=== PATIENT | female | born 1935 | race Caucasian/White ===

== ENCOUNTER 2022-07-10 12:30 | Inpatient (IN) ==
--- NOTE | 2022-07-10 12:55 | Emergency Department Note ---
Impression & Plan Pulmonary edema, Abnormal EKG, Acute hyperkalemia, Elevated troponin I level, Acute UTI (urinary tract infection), Acute hyponatremia ED Provider Note NAME: GABRIEL GOMES AGE: 86 SEX: F : 1935 ARRIVES VIA: Ambulance INFORMANT: Patient, EMS, the patient's family. ED PROVIDER(S): Foreign Starr DO CHIEF COMPLAINT: Shortness of breath HPI: The patient is an 86-year-old female who presented to the emergency department for an evaluation of shortness of breath. She was recently discharged from [facility] for an NSTEMI. The patient went to see her family doctor in follow-up today. She was noted to have shortness of breath. She was sent to the emergency department for further evaluation. The patient's had weight gain and orthopnea. She is not noted to be hypoxic by the prehospital personnel. ROS: See above HPI for pertinent positives & negatives. A total of 10 systems re viewed and were otherwise negative. PAST MEDICAL HISTORY: See Below PAST SURGICAL HISTORY: See Below FAMILY HISTORY: See Below SOCIAL HISTORY: See Below HOME MEDICATIONS: See Below ALLERGIES: See Below VITALS: See Below PHYSICAL EXAMINATION: GENERAL: The patient is awake and alert. She appears comfortable. EYES: The conjunctivae are clear. The pupils are round and reactive. EARS, NOSE, MOUTH AND THROAT: The nose is without any evidence of any deformity. NECK: The neck is nontender and supple. RESPIRATORY: Diminished breath sounds are noted throughout. There were rales noted in all lung gamino. CARDIOVASCULAR: Irregular heart sounds were noted to auscultation. There is no definite murmur. GASTROINTESTINAL: The abdomen is soft. Abdomen is nontender. MUSCULOSKELETAL/EXTREMITIES: There is no evidence of gross deformity full range of motion is noted in the hips and shoulders. SKIN: Pedal edema was noted bilaterally. Skin was warm and dry. NEUROLOGIC: Patient is awake alert and oriented x3 MEDICAL DECISION MAKING: The patient is an 86-year-old female who presented to the emergency department for an evaluation of difficulty breathing. The patient was recently discharged from [facility]. Reportedly she had an NSTEMI at that time. The pat ient also reportedly had a follow-up echo that showed a decrease in her ejection fraction. She has been noted to have shortness of breath and weight gain. Upon arrival the patient's history and physical exam do appear to be consistent with pulmonary edema. She was treated with IV Lasix. Further she was treated with IV calcium dextrose and insulin for hyperkalemia. The patient was reevaluated multiple times. I discussed the patient's laboratory and radiographic studies with her family members. I also discussed her condition with the on-call [facility]. They have agreed to evaluate the patient in the emergency department for further management and disposition. Triage Nursing notes reviewed. Prior medical records reviewed Vital Signs: reviewed and remarkable for no significant abnormalities Differential diagnosis: Reactive airway disease, pneumonia, pneumothorax, COPD, CHF, infections, cardiac ischemia, pulmonary embolism, musculoskeletal, gastrointestinal, as well as other pathologies. ER treatment provided: See below Diagnostics interpreted by me: ECG: EKG was obtained in the emergency department. My interpretation is atrial fibrillation at 75 bpm. There is no PVCs. Right bundle-branch block pattern was noted. Nonspecific T wave abnormalities were noted in the anterior and inferior leads. There was ST segment abnormalities also appreciated. This was compared to a tracing from July 03, 2022. There were significant changes noted compared to the earlier tracing. Cardiac Monitoring: An order was placed for continuous cardiac monitoring. The monitor shows a rate of 83 bpm with atrial fibrillation. Laboratory studies: As stated above and show below. Imaging studies: See below. Radiographic imaging was reviewed by myself Consultation(s): I discussed this case with Liza who is on-call for the [facility] group. ED COURSE: Procedures: none Critical Care: I have personally spent greater than 45 minutes of critical care time in the direct management of this patient. This includes bedside care, interpretation of diagnostic studies, and testing, discussion with consultants, patient, and family members, and other required patient management activities. This 45 minutes is in excess of all separately billable procedures. Past Med/Surg History Medical History (Updated 07/10/22 @ 15:22 by Foreign Starr DO) CKD (chronic kidney disease), stage III DM type 2 (diabetes mellitus, type 2) Dyslipidemia History of CVA (cerebrovascular accident) Hypertension Hyponatremia Hypothyroidism Mitral valve regurgitation "severe per echo 10/07/17" Osteoarthritis SIADH (syndrome of inappropriate ADH production) Stroke Systolic CHF, chronic "echo 10/07/17 LVEF 40-45%" Surgical History History of cataract surgery History of hernia repair Hx of cholecystectomy Family History Other No significant family history Social History Smoking Status: Never smoker Hx Alcohol Use: No Hx Substance Use: No Preferred Language: Nepali Communication Ability: Effective Manager Of Network Required: No Beliefs That Will Affect Care: None Current Living Situation: Family Current Living Situation Comment: Lives with son Feels Safe at Home: Yes Assistive Devices: Glasses and Walker Allergies Allergies Allergy/AdvReac Type Severity Reaction Status Date / Time No Known Allergies Allergy Unverified 02/15/18 23:50 Home Meds Home Medications Medication Instructions Recorded Confirmed atorvastatin 20 mg tablet 20 mg PO DAILY 02/15/18 02/15/18 calcium carbonate 600 mg-vitamin 1 tab PO DAILY 02/15/18 02/15/18 D3 20 mcg (800 unit) chewable tablet (Caltrate 600 plus D) clopidogrel 75 mg tablet 75 mg PO DAILY 02/15/18 02/15/18 conjugated estrogens 0.625 mg/gram 1 applic vaginal 2XWK 02/15/18 02/15/18 vaginal cream furosemide 40 mg tablet 20 mg PO HS 02/15/18 02/15/18 levothyroxine 88 mcg tablet 88 mcg PO DAILY 02/15/18 02/15/18 lutein 10 mg tablet 6 mg PO BID 02/15/18 02/15/18 metformin 1,000 mg tablet 1,000 mg PO BID 02/15/18 02/15/18 omega 9-cxn-vmb-fish oil 1,000 mg 2,000 mg PO DAILY 02/15/18 02/15/18 (120 mg-180 mg) capsule (Fish Oil) sertraline 25 mg tablet 25 mg PO DAILY 02/15/18 02/15/18 sodium chloride 1 gram tablet 1,000 mg PO HS 02/15/18 02/15/18 vitamins A,C,G-yzdf-okocxw 2,148 1 tab PO DAILY 02/15/18 02/15/18 mcg-113 mg-45 mg-17.4 mg tablet (PreserVision AREDS) Previous Rx's Medication Instructions Recorded aspirin 81 mg chewable tablet 81 mg PO DAILY #30 tabs 02/20/18 Results & Data (ED) Vital Signs Vital Signs - 24 hr 07/10/22 12:31 07/10/22 12:31 07/10/22 12:31 Temperature 36.5 C Temperature Source Oral Pulse Rate 86 Pulse Rhythm Irregular Pulse Strength Normal Respiratory Rate 20 Respiratory Effort / Characteristics Non-Labored Spontaneous Accessory Muscle Use Respiratory Depth Normal Normal Respiratory Pattern Regular Regular Blood Pressure 107/72 Blood Pressure Mean 83 Blood Pressure Position Lying Pulse Oximetry 95 Oxygen Delivery Method Room Air Room Air Room Air Sepsis Recent Fever Within 48 Hours No Sepsis New/Unexplained Change in Mental Status N/A Sepsis Action Taken by Nursing No Action Required 07/10/22 12:31 07/10/22 12:48 Temperature Temperature Source Pulse Rate 83 Pulse Rhythm Pulse Strength Respiratory Rate Respiratory Effort / Characteristics Respiratory Depth Respiratory Pattern Blood Pressure Blood Pressure Mean Blood Pressure Position Pulse Oximetry Oxygen Delivery Method Room Air Sepsis Recent Fever Within 48 Hours Sepsis New/Unexplained Change in Mental Status Sepsis Action Taken by [facility] Medications Current Medication List: was personally reviewed by me Laboratory Data Attestation: I reviewed the patient's lab results. 07/10/22 12:45 07/10/22 12:45 Lab Results 07/10/22 07/10/22 07/10/22 Range/Units 12:45 12:45 12:45 WBC 13.50 H (4.8-10.8) K/ul RBC 4.43 (4.20-5.40) M/uL Hgb 13.3 (12.0-16.0) g/dl Hct 39.7 (37.0-47.0) % MCV 89.6 (80.0-100.0) fL MCH 30.0 (25.0-34.0) pg MCHC 33.5 (32.0-36.0) g/dL RDW Std Deviation 45.3 (36.4-46.3) fL RDW Coeff of Gonzalo 13.9 (11.5-14.5) % Plt Count 223 (130-400) K/uL MPV 10.3 (9.4-12.4) fL Immature Gran % (Auto) 0.5 % Neut % (Auto) 77.1 % Lymph % (Auto) 13.3 % Haakon % (Auto) 7.8 % Eos % (Auto) 1.0 % Baso % (Auto) 0.3 % Neut # (Auto) 10.40 H (1.40-6.50) K/uL Lymph # (Auto) 1.80 (1.2-3.4) K/uL Haakon # (Auto) 1.05 H (0.11-0.59) K/uL Eos # (Auto) 0.14 (0-0.50) K/uL Baso # (Auto) 0.04 (0-0.2) K/uL Immature Gran # (Auto) 0.07 (0.01-0.20) K/uL PT 13.9 H (9.0-12.0) Seconds INR 1.3 H (0.9-1.1) APTT 31.4 H (21.0-31.0) Seconds PTT Ratio 1.1 VBG pH (7.36-7.41) VBG pCO2 (38-50) mmHg VBG pO2 mmHg VBG HCO3 mmol/L VBG O2 Saturation % VBG Base Excess mEq/L Sodium 125 L (136-145) mmol/L Potassium 6.2 H* (3.5-5.1) mmol/L Chloride 96 L (98-107) mmol/L Carbon Dioxide 26 (21-32) mmol/L Anion Gap 3 (3-11) BUN 54 H (6-23) mg/dl Creatinine 1.68 H (0.6-1.2) mg/dl Est Cr Clr Drug Dosing 23.1 ml/min Est GFR ( Amer) 31.3 ml/min Est GFR (Non-Af Amer) 27.0 ml/min BUN/Creatinine Ratio 32.1 H (10-20) Glucose 73 (70-99(Fasting)) mg/dl Calcium 9.3 (8.5-10.1) mg/dl Magnesium 2.4 (1.7-2.4) mg/dl Total Bilirubin 0.8 (0.2-1.0) mg/dl AST 93 H (13-39) U/L ALT 108 H (7-52) U/L Alkaline Phosphatase 137 H (34-104) U/L Troponin I High Sens 86.4 H* (0-14) pg/ml B-Natriuretic Peptide (0-100) pg/ml Total Protein 6.3 (6.0-8.3) gm/dl Albumin 3.9 (3.4-5.0) gm/dl Globulin 2.4 L (2.5-4.0) gm/dl Albumin/Globulin Ratio 1.6 (0.9-2) Urine Color Urine Appearance (Clear) Urine pH (4.5-7.5) Ur Specific Everett (1.000-1.030) Urine Protein (Negative) Urine Glucose (UA) (Negative) Urine Ketones (Negative) Urine Blood (Negative) Urine Nitrite (Negative) Urine Bilirubin (Negative) Urine Urobilinogen (Negative) Ur Leukocyte Esterase (Negative) Urine WBC (Auto) (0-5) /hpf Urine RBC (Auto) (0-4) /hpf U Hyaline Cast (Auto) (0-5) /lpf U Epithel Cells (Auto) (0-5) /lpf Urine Bacteria (Auto) (Negative) SARS-CoV-2, RNA, NAAT (NEGATIVE) 07/10/22 07/10/22 07/10/22 Range/Units 12:45 12:55 13:04 WBC (4.8-10.8) K/ul RBC (4.20-5.40) M/uL Hgb (12.0-16.0) g/dl Hct (37.0-47.0) % MCV (80.0-100.0) fL MCH (25.0-34.0) pg MCHC (32.0-36.0) g/dL RDW Std Deviation (36.4-46.3) fL RDW Coeff of Gonzalo (11.5-14.5) % Plt Count (130-400) K/uL MPV (9.4-12.4) fL Immature Gran % (Auto) % Neut % (Auto) % Lymph % (Auto) % Haakon % (Auto) % Eos % (Auto) % Baso % (Auto) % Neut # (Auto) (1.40-6.50) K/uL Lymph # (Auto) (1.2-3.4) K/uL Haakon # (Auto) (0.11-0.59) K/uL Eos # (Auto) (0-0.50) K/uL Baso # (Auto) (0-0.2) K/uL Immature Gran # (Auto) (0.01-0.20) K/uL PT (9.0-12.0) Seconds INR (0.9-1.1) APTT (21.0-31.0) Seconds PTT Ratio VBG pH 7.28 L (7.36-7.41) VBG pCO2 50 (38-50) mmHg VBG pO2 32 mmHg VBG HCO3 24 mmol/L VBG O2 Saturation < 60.0 % VBG Base Excess -3.7 mEq/L Sodium (136-145) mmol/L Potassium (3.5-5.1) mmol/L Chloride (98-107) mmol/L Carbon Dioxide (21-32) mmol/L Anion Gap (3-11) BUN (6-23) mg/dl Creatinine (0.6-1.2) mg/dl Est Cr Clr Drug Dosing ml/min Est GFR ( Amer) ml/min Est GFR (Non-Af Amer) ml/min BUN/Creatinine Ratio (10-20) Glucose (70-99(Fasting)) mg/dl Calcium (8.5-10.1) mg/dl Magnesium (1.7-2.4) mg/dl Total Bilirubin (0.2-1.0) mg/dl AST (13-39) U/L ALT (7-52) U/L Alkaline Phosphatase (34-104) U/L Troponin I High Sens (0-14) pg/ml B-Natriuretic Peptide 958 H (0-100) pg/ml Total Protein (6.0-8.3) gm/dl Albumin (3.4-5.0) gm/dl Globulin (2.5-4.0) gm/dl Albumin/Globulin Ratio (0.9-2) Urine Color Urine Appearance (Clear) Urine pH (4.5-7.5) Ur Specific Everett (1.000-1.030) Urine Protein (Negative) Urine Glucose (UA) (Negative) Urine Ketones (Negative) Urine Blood (Negative) Urine Nitrite (Negative) Urine Bilirubin (Negative) Urine Urobilinogen (Negative) Ur Leukocyte Esterase (Negative) Urine WBC (Auto) (0-5) /hpf Urine RBC (Auto) (0-4) /hpf U Hyaline Cast (Auto) (0-5) /lpf U Epithel Cells (Auto) (0-5) /lpf Urine Bacteria (Auto) (Negative) SARS-CoV-2, RNA, NAAT NEGATIVE (NEGATIVE) 07/10/22 Range/Units 13:34 WBC (4.8-10.8) K/ul RBC (4.20-5.40) M/uL Hgb (12.0-16.0) g/dl Hct (37.0-47.0) % MCV (80.0-100.0) fL MCH (25.0-34.0) pg MCHC (32.0-36.0) g/dL RDW Std Deviation (36.4-46.3) fL RDW Coeff of Gonzalo (11.5-14.5) % Plt Count (130-400) K/uL MPV (9.4-12.4) fL Immature Gran % (Auto) % Neut % (Auto) % Lymph % (Auto) % Haakon % (Auto) % Eos % (Auto) % Baso % (Auto) % Neut # (Auto) (1.40-6.50) K/uL Lymph # (Auto) (1.2-3.4) K/uL Haakon # (Auto) (0.11-0.59) K/uL Eos # (Auto) (0-0.50) K/uL Baso # (Auto) (0-0.2) K/uL Immature Gran # (Auto) (0.01-0.20) K/uL PT (9.0-12.0) Seconds INR (0.9-1.1) APTT (21.0-31.0) Seconds PTT Ratio VBG pH (7.36-7.41) VBG pCO2 (38-50) mmHg VBG pO2 mmHg VBG HCO3 mmol/L VBG O2 Saturation % VBG Base Excess mEq/L Sodium (136-145) mmol/L Potassium (3.5-5.1) mmol/L Chloride (98-107) mmol/L Carbon Dioxide (21-32) mmol/L Anion Gap (3-11) BUN (6-23) mg/dl Creatinine (0.6-1.2) mg/dl Est Cr Clr Drug Dosing ml/min Est GFR ( Amer) ml/min Est GFR (Non-Af Amer) ml/min BUN/Creatinine Ratio (10-20) Glucose (70-99(Fasting)) mg/dl Calcium (8.5-10.1) mg/dl Magnesium (1.7-2.4) mg/dl Total Bilirubin (0.2-1.0) mg/dl AST (13-39) U/L ALT (7-52) U/L Alkaline Phosphatase (34-104) U/L Troponin I High Sens (0-14) pg/ml B-Natriuretic Peptide (0-100) pg/ml Total Protein (6.0-8.3) gm/dl Albumin (3.4-5.0) gm/dl Globulin (2.5-4.0) gm/dl Albumin/Globulin Ratio (0.9-2) Urine Color Dark Yellow Urine Appearance Cloudy A (Clear) Urine pH 5.0 (4.5-7.5) Ur Specific Everett 1.019 (1.000-1.030) Urine Protein 2+ H (Negative) Urine Glucose (UA) Negative (Negative) Urine Ketones Negative (Negative) Urine Blood Negative (Negative) Urine Nitrite Negative (Negative) Urine Bilirubin Negative (Negative) Urine Urobilinogen Negative (Negative) Ur Leukocyte Esterase 2+ H (Negative) Urine WBC (Auto) >30 H (0-5) /hpf Urine RBC (Auto) 0-4 (0-4) /hpf U Hyaline Cast (Auto) 1-5 (0-5) /lpf U Epithel Cells (Auto) >30 H (0-5) /lpf Urine Bacteria (Auto) 1+ H (Negative) SARS-CoV-2, RNA, NAAT (NEGATIVE) Administered Medications Discontinued Medications Dextrose (Dextrose 50% 50 Ml Syringe) 50 ml IV NOW STA Stop: 07/10/22 13:53 Last Admin: 07/10/22 14:50 Dose: 50 ml Documented By: AP Furosemide (Furosemide 40 Mg/4 Ml Vial) 40 mg IV ONE ONE Stop: 07/10/22 13:53 Last Admin: 07/10/22 14:51 Dose: 40 mg Documented By: AP Calcium Chloride 1,000 mg/ (Dextrose) 60 mls @ 240 mls/hr IV NOW STA Stop: 07/10/22 14:06 Last Admin: 07/10/22 14:50 Dose: 240 mls/hr Documented By: AP Insulin Human Regular (Novolin-R Insulin Per Unit Charge) 10 units IV NOW STA Stop: 07/10/22 13:53 Last Admin: 07/10/22 14:47 Dose: 10 units Documented By: AP Co-signed By: AY Imaging Data Radiologist's Impression: Chest X-Ray 07/10/22 12:31 XR chest 1V portable HISTORY: Cough. Dyspnea COMPARISON: Chest 02/15/2018. FINDINGS: No pneumothorax. The cardiac silhouette is enlarged. This has progressed. There is perihilar interstitial/vascular thickening suggestive of mild pulmonary edema. Suspect trace bilateral pleural effusions. There are right medial lung base densities noted which are new from the prior study. IMPRESSION: 1. Progressive cardiomegaly with mild interstitial pulmonary edema and trace bilateral pleural effusions. 2. Right medial lung base densities are new from the prior study may represent atelectasis or a developing pneumonia. ACT 112: Negative or not required by law. Electronically signed by: Gabriel Howard M.D. 07/10/2022 1:00 PM Discharge Plan Visit Data Chief Complaint: Shortness of Breath/Dyspnea Stated Complaint: SOB ED Provider: Foreign Starr Discharge Problem: Pulmonary edema, Abnormal EKG, Acute hyperkalemia, Elevated troponin I level, Acute UTI (urinary tract infection), Acute hyponatremia Patient Disposition: Being Evaluated by Hospitalist Forms Stand Alone Forms: [facility] Prescriptions Prescriptions: No Action furosemide 40 mg tablet 20 mg PO HS atorvastatin 20 mg tablet 20 mg PO DAILY clopidogrel 75 mg tablet 75 mg PO DAILY levothyroxine 88 mcg tablet 88 mcg PO DAILY metformin 1,000 mg tablet 1,000 mg PO BID sodium chloride 1 gram Tablet 1,000 mg PO HS conjugated estrogens 0.625 mg/gram cream 1 applic Vaginal 2XWK sertraline 25 mg Tablet 25 mg PO DAILY lutein 10 mg Tablet 6 mg PO BID omega 6-xlp-pbr-fish oil [Fish Oil] 1,000 mg (120 mg-180 mg) Capsule 2,000 mg PO DAILY vitamins A,C,G-vbln-acoxgb [PreserVision AREDS] [id number] Tablet 1 tab PO DAILY calcium carbonate-vitamin D3 [Caltrate 600 plus D] 600 mg (1,500 mg)-800 unit Tablet,Chewable 1 tab PO DAILY aspirin 81 mg tablet,chewable 81 mg PO DAILY Qty: 30 12RF Referrals Referrals: Madhav Camacho MD [Primary Care Provider] -
--- NOTE | 2022-07-10 13:01 | XRay Report ---
XR chest 1V portable HISTORY: Cough. Dyspnea COMPARISON: Chest 02/15/2018. FINDINGS: No pneumothorax. The cardiac silhouette is enlarged. This has progressed. There is perihila r interstitial/vascular thickening suggestive of mild pulmonary edema. Suspect trace bilateral pleura l effusions. There are right medial lung base densities noted which are new from the prior study. IMPRESSION: 1. Progressive cardiomegaly with mild interstitial pulmonary edema and trace bilateral pleural effusi ons. 2. Right medial lung base densities are new from the prior study may represent atelectasis or a devel oping pneumonia. ACT 112: Negative or not required by law. Electronically signed by: Gabriel Howard M.D. 07/10/2022 1:00 PM
[2022-07-10 13:08] LABS: Base Excess VBG -3.7 mEq/L; HCO3 VBG 24 mmol/L; Oxygen Saturation VBG < 60.0 %; PCO2 VBG 50 mmHg (38-50); PO2 VBG 32 mmHg; pH VBG 7.28 (7.36-7.41)
[2022-07-10 13:14] LABS: Basophils # (auto) 0.04 K/uL (0-0.2); Basophils % (auto) 0.3 %; Eosinophils # (auto) 0.14 K/uL (0-0.50); Hematocrit (blood only) 39.7 % (37.0-47.0); Hemoglobin 13.3 g/dl (12.0-16.0); Immature Granulocytes # (auto) 0.07 K/uL (0.01-0.20); Immature Granulocytes % (auto) 0.5 %; Lymphocytes % (auto) 13.3 %; Mean Corpuscular Hgb Conc 33.5 g/dL (32.0-36.0); Mean Corpuscular Volume 89.6 fL (80.0-100.0); Mean Platelet Volume 10.3 fL (9.4-12.4); Monocytes # (auto) 1.05 K/uL (0.11-0.59); Monocytes % (auto) 7.8 %; Neutrophils % (auto) 77.1 %; Platelet Count 223 K/uL (130-400); RDW Coefficient of Variation 13.9 % (11.5-14.5); RDW Standard Deviation 45.3 fL (36.4-46.3); Red Blood Count 4.43 M/uL (4.20-5.40)
[2022-07-10 13:41] LABS: Albumin Globulin Ratio 1.6 (0.9-2); Albumin Level 3.9 gm/dl (3.4-5.0); BUN Creatinine Ratio 32.1 (10-20); Bilirubin,Total 0.8 mg/dl (0.2-1.0); Calcium 9.3 mg/dl (8.5-10.1); Creatinine Clr Calc Pharmacy 23.1 ml/min; Est GFR (African American) 31.3 ml/min; Globulin 2.4 gm/dl (2.5-4.0); Magnesium 2.4 mg/dl (1.7-2.4); Potassium 6.2 mmol/L (3.5-5.1); Total Protein 6.3 gm/dl (6.0-8.3); Troponin I High Sensitivity 86.4 pg/ml (0-14)
[2022-07-10 13:42] LABS: INR 1.3 (0.9-1.1); Partial Thromboplastin Ratio 1.1; Partial Thromboplastin Time 31.4 Seconds (21.0-31.0); Prothrombin Time 13.9 Seconds (9.0-12.0)
[2022-07-10] MEDS ORDERED: FUROSEMIDE 40 MG/4 ML VIAL IV ONE (13:52)
[2022-07-10] MEDS ORDERED: CALCIUM CHLORIDE 10% 1,000 MG in DEXTROSE 5% 50 ML IV STA (13:52)
[2022-07-10] MEDS ORDERED: DEXTROSE 50% 50 ML SYRINGE IV STA (13:52)
[2022-07-10] MEDS ORDERED: NovoLIN-R INSULIN PER UNIT CHARGE IV STA (13:52)
[2022-07-10 14:21] LABS: Appearance Urine Cloudy (Clear); Bacteria Urine Automated 1+ (Negative); Bilirubin Urine Negative (Negative); Blood Urine Negative (Negative); Color Urine Dark Yellow; Epithelial Cell Urine Auto >30 /lpf (0-5); Glucose Urine UA Negative (Negative); Ketones Urine Negative (Negative); Leukocyte Esterase Urine 2+ (Negative); Nitrite Urine Negative (Negative); Protein Urine 2+ (Negative); RBC Urine Automated 0-4 /hpf (0-4); Specific Gravity Urine 1.019 (1.000-1.030); Urobilinogen Urine Negative (Negative); WBC Urine Automated >30 /hpf (0-5)
[2022-07-10] MEDS ORDERED: POLYETHYLENE (MIRALAX) 17 GM PACK PO PRN (14:41)
[2022-07-10] MEDS ORDERED: MAGNESIUM HYDROXIDE SUSP 30 ML UDC PO PRN (14:41)
[2022-07-10] MEDS ORDERED: ONDANSETRON INJ 2 MG/ML 2 ML VIAL IV PRN (14:41)
[2022-07-10] MEDS ORDERED: ALUMINUM/MAGNESIUM SUSP 30 ML UDC PO PRN (14:41)
[2022-07-10] MEDS ORDERED: ACETAMINOPHEN 325 MG TAB PO PRN (14:41)
--- NOTE | 2022-07-10 14:41 | History & Physical Report ---
Date of Service July 10, 2022 Assessment & Plan (1) Systolic CHF, chronic: (2) Pulmonary edema: (3) Abnormal EKG: (4) CKD (chronic kidney disease), stage III: (5) Hypertension: (6) Dyslipidemia: (7) DM type 2 (diabetes mellitus, type 2): (8) SIADH (syndrome of inappropriate ADH production): (9) History of CVA (cerebrovascular accident): (10) Hypothyroidism: (11) Goals of care, counseling/discussion: Plan Systolic CHF, chronic: Pulmonary edema: Abnormal EKG: CXR pulmonary edema; pleural effusions Lasix 40 mg IV administered in ED; reevaluate in a.m. for continuation of diuretics Patient typically takes Lasix 20 mg nightly; hold for now reevaluate in a.m. Concepcion insertion for accurate I/O Normally would recommend fluid restriction however transition to more hospice approach ECHO 10/08 LVEF 40 to 45%; echo 06/29/2022 EF 20%; mild to moderate MR and TR; defer repeat echo at this time pending cards eval Cardiology consult per request of family prior to transitioning home with hospice Pneumonia: CXR pulmonary edema; pleural effusions Started Rocephin IV Sputum culture pending Metabolic acidosis on VBG; CO2 50 but does not appear to need BiPAP at this time Leukocytosis WBC 13.5 CKD stage III: Baseline creatinine 1.4-1.9 over the past year; currently 1.68 K6.2 in ED Lasix, insulin and dextrose along with calcium IV administered; will trend with time to BMPs; K+ recheck to 4.8; trend in AM Confirmed patient would not want to pursue dialysis Nephrology consult per request of family prior to transitioning home with hospice Goals of Care; counseling: -Lengthy goals of care conversation held with patient and her family at the bedside. Patient lives with her son and daughter visits every day. There are 10 adult children involved in Mai's life. Mai was able to state that should her life be limited she would prefer to avoid future from hospitalizations and return home to focus on quality of life versus quantity. We discussed the difference between palliative medicine and hospice medicine. We discussed that patient would qualify for hospice with a diagnosis of congestive heart failure. Patient lives in a two-story home but has access to everything she needs on one story. Family in agreement to have specialist evaluation while here in the hospital but would avoid intervention at all cost. -Confirmed patient is DNR/DNI. Patient does have with a living will indicating she would not want to pursue hemodialysis, IV hydration or nutrition or ACLS intervention, including vasoactive medications should she decline. -If no improvement with patient's breathing from diuretics family is receptive to Roxanol PRN. Poor appetite reported lately. -Case management consult placed; no need for additional palliative medicine consultation placement as decision decided upon for returning home with hospice with all family in agreement upon discharge. Family lives in [facility]. Dyslipidemia: Takes atorvastatin; continue DM type II: Takes Tradjenta and was recently started on Lantus; will hold all oral diabetes medications while inpatient Placed on ACHS FSBS SSI SIADH: Takes sodium chloride tablets; continue History of CVA: Takes Eliquis; continue for now Discussed risk versus benefit with family. No recent falls to date Hypothyroidism: Takes levothyroxine; continue Recheck TSH Depression: Takes sertraline; continue Disposition: PCP: Dr. Camacho CODE STATUS: DNR/DNI VTE prophylaxis: Teds and SCDs for now Next of kin daughterBetzy: [phone] A total of 88 minutes was spent with greater than 50% of that time personally reviewing all current laboratory work and diagnostic imaging studies obtained in the ED. Additionally, I was able to review the patients past medication reconciliation and history with direct visualization in the patients chart. Included in the time above, a portion of that time was spent assessing the patient while discussing and collaborating with specialists, if necessary, and making medical decisions regarding orders to be placed. All of the aforementioned completed while collaborating with Dr. Lindquist for a full treatment plan. Please see his addendum for further details. History of Present Illness Chief Complaint: SOB Primary Care Provider: Madhav Camacho MD Mai is an 86-year-old female who presented to the [facility] via EMS from her PCP office with shortness of breath, weight gain. Potassium 6.2, sodium 125, creatinine 1.68 (baseline creatinine 1.4-1.9 over past year) Patient recently discharged from [facility] with diagnosis of NSTEMI in the setting of ischemic demand and reduced EF. Today chest x-ray shows pulmonary edema with pleural effusions. Patient is a poor historian and family at bedside to provide most of the history. In ED patient received Lasix 40 mg IV, insulin with dextrose, IV calcium. BNP 958, troponin 86.4. Echo in EMR 10/08 LVEF 40 to 45%. Echo 06/29/2022 EF 20%, mild to moderate MR, mild to moderate TR. Patient takes Plavix Additional past medical history includes history of CVA(on Plavix), SIADH, HLD, HTN, CKD 3, NIDDM 2, depression and hypothyroidism. Lengthy goals of care conversation held with patient and her family at the bedside. Patient lives with her son and daughter visits every day. There are 10 adult children involved in Mai's life. Mai was able to state that should her life be limited she would prefer to avoid future from hospitalizations and return home to focus on quality of life versus quantity. We discussed the difference between palliative medicine and hospice medicine. We discussed that patient would qualify for hospice with a diagnosis of congestive heart failure. Patient lives in a two-story home but has access to everything she needs on one story. Family in agreement to have specialist evaluation while here in the hospital but would avoid intervention at all cost. Confirmed patient is DNR/DNI. Patient does have with a living will indicating she would not want to pursue hemodialysis, IV hydration or nutrition or ACLS intervention, including vasoactive medications should she decline. Patient denies headache, dizziness, chest pain, visual or auditory changes, abdominal pain, recent falls or trauma. On examination at bedside, patient is using diaphragmatic muscles for breathing assistance, has a nonproductive cough, grade 2/6 murmur auscultated left sternal border. Patient will be admitted for further evaluation and management. Please see A/P for further details. Allergies Allergy/AdvReac Type Severity Reaction Status Date / Time No Known Allergies Allergy Unverified 02/15/18 23:50 Home Medications Medication Instructions Recorded Confirmed Type atorvastatin 20 mg tablet 20 mg PO DAILY 02/15/18 07/10/22 History calcium carbonate 600 mg-vitamin 1 tab PO DAILY 02/15/18 07/10/22 History D3 20 mcg (800 unit) chewable tablet (Caltrate 600 plus D) conjugated estrogens 0.625 mg/gram 1 applic vaginal 2XWK 02/15/18 07/10/22 History vaginal cream furosemide 40 mg tablet 20 mg PO HS 02/15/18 07/10/22 History levothyroxine 88 mcg tablet 88 mcg PO DAILY 02/15/18 07/10/22 History lutein 10 mg tablet 6 mg PO BID 02/15/18 07/10/22 History metformin 1,000 mg tablet 1,000 mg PO BID 02/15/18 07/10/22 History omega 9-kuw-wez-fish oil 1,000 mg 2,000 mg PO DAILY 02/15/18 07/10/22 History (120 mg-180 mg) capsule (Fish Oil) sertraline 25 mg tablet 25 mg PO DAILY 02/15/18 07/10/22 History sodium chloride 1 gram tablet 1,000 mg PO HS 02/15/18 07/10/22 History vitamins A,C,R-ourm-ycjlyy 2,148 1 tab PO DAILY 02/15/18 07/10/22 History mcg-113 mg-45 mg-17.4 mg tablet (PreserVision AREDS) aspirin 81 mg chewable tablet 81 mg PO DAILY #30 tabs 02/20/18 07/10/22 Rx Past Med/Surg History Medical History (Updated 07/11/22 @ 08:22 by Amelia Moore MD, PhD) CKD (chronic kidney disease) stage 4, GFR 15-29 ml/min DM type 2 (diabetes mellitus, type 2) Dyslipidemia Goals of care, counseling/discussion History of CVA (cerebrovascular accident) Hypertension Hyponatremia Hypothyroidism Mitral valve regurgitation "severe per echo 10/07/17" Osteoarthritis SIADH (syndrome of inappropriate ADH production) Stroke Systolic CHF, chronic "echo 10/07/17 LVEF 40-45%" Surgical History History of cataract surgery History of hernia repair Hx of cholecystectomy Family History Other No significant family history Social History Smoking Status: Former smoker Second Hand Exposure: No; Hx Alcohol Use: No Hx Substance Use: No Preferred Language: Kazakh Communication Ability: Effective Fire Technician Required: No Beliefs That Will Affect Care: None Current Living Situation: Family Current Living Situation Comment: Lives with son Other Information That Helps Us Care for You: No Feels Safe at Home: Yes Safety Concerns: Feels Safe At This Time Assistive Devices: Denture - Lower, Glasses and Walker Review of Systems Review of Systems: Unobtainable due to cognitive status Physical Exam Physical Exam: Neuro: AAOx4, PERRLA, no aphagia, memory changes, CNII-XII grossly intact HEENT: head normocephalic, moist mucus membranes CV: S1/S2, (-) M/G/R, (-) edema, cap refill < 3 seconds Resp: Lungs CTA in all gamino. On RA GI: Abdomen S/NT/ND, Ax4 bowel sounds, (-) CVA tenderness Musculoskeletal: 5/5 B/L UE strength, 5/5 B/L LE strength. No gait disturbance Skin: (-) rashes , (-) erythema. Psych: euthymic mood Results & Data Results & Data ([facility]) Vital Signs (Past 12 Hours) Vital Signs Temp Pulse Resp BP Pulse Ox O2 Del Method 07/10/22 12:48 83 07/10/22 12:31 Room Air 07/10/22 12:31 Room Air 07/10/22 12:31 Room Air 07/10/22 12:31 36.5 C 86 20 107/72 95 Room Air Laboratory Results Short CBC 07/10/22 Range/Units 12:45 WBC 13.50 H (4.8-10.8) K/ul Hgb 13.3 (12.0-16.0) g/dl Hct 39.7 (37.0-47.0) % Plt Count 223 (130-400) K/uL BMP 07/10/22 12:45 Sodium 125 L Potassium 6.2 H* Chloride 96 L Carbon Dioxide 26 BUN 54 H Creatinine 1.68 H Glucose 73 Calcium 9.3 Liver Function 07/10/22 Range/Units 12:45 Total Bilirubin 0.8 (0.2-1.0) mg/dl AST 93 H (13-39) U/L ALT 108 H (7-52) U/L Alkaline Phosphatase 137 H (34-104) U/L Albumin 3.9 (3.4-5.0) gm/dl Diagnostic Findings Chest X-Ray 07/10/22 12:31 XR chest 1V portable HISTORY: Cough. Dyspnea COMPARISON: Chest 02/15/2018. FINDINGS: No pneumothorax. The cardiac silhouette is enlarged. This has progressed. There is perihilar interstitial/vascular thickening suggestive of mild pulmonary edema. Suspect trace bilateral pleural effusions. There are right medial lung base densities noted which are new from the prior study. IMPRESSION: 1. Progressive cardiomegaly with mild interstitial pulmonary edema and trace bilateral pleural effusions. 2. Right medial lung base densities are new from the prior study may represent atelectasis or a developing pneumonia. ACT 112: Negative or not required by law. Electronically signed by: Gabriel Howard M.D. 07/10/2022 1:00 PM Code Status & VTE Plan Code Status DNR/DNI in the event of cardiac or respiratory arrest VTE Prophylaxis Plan VTE Prophylaxis will be ordered: Yes Supervising Physician Co-Signing Physician Notes 86-year-old lady with PMH of CVA on Plavix, SIADH, HLD, HTN, CKD 3, NIDDM 2, depression and hypothyroidism sent to the ED from PCP office with shortness of breath and weight gain. Admitting labs with hyponatremia at 125 and hyperkalemia of 6.2 with creatinine around baseline, patient received potassium cocktail treatment at ED with improvement in her hyperkalemia. Troponins were elevated, CXR revealed pneumonia and pulmonary edema. Recent echo with reduced ejection fraction at 20%. Per patient's family, patient has been coughing increasingly with wet nature lately and patient has had poor appetite lately. Also patient has not taken her Lasix for the last 6 days due to it being held with patient's PCP recommendation per patient's family. Patient will be managed for acute on chronic heart failure with reduced ejection fraction, pneumonia, hyponatremia, hyperkalemia. Patient with no chest pain. Trend troponin. Cardiology consult. Nephrology consult. Rocephin. Lasix IV. Telemetry monitoring. On examination: GENERAL: Alert and oriented x3. NAD, on RA. HEENT: No pallor, no icterus. Pupils equal, round and reactive to light. Oral mucosa moist. NECK: No JVD, no neck masses. HEART: S1 and S2 heard. Regular rate and rhythm. No murmur, no gallop. RESPIRATORY SYSTEM: Normal AP diameter. No accessory muscle use. No wheezing, b/b crackles. ABDOMEN: Soft, bowel sounds present, nontender, no distention. CENTRAL NERVOUS SYSTEM: No facial droop. Speech is clear. Obeys simple commands. Moves extremities. EXTREMITIES: No edema, no erythema seen. I have seen and examined the patient and have discussed the case with the pro vider above. I agree with the assessment and plan as stated. (2) Pulmonary edema Chronicity: acute Qualified Code(s): J81.0 - Acute pulmonary edema
[2022-07-10] MEDS ORDERED: cefTRIAXone SODIUM 2,000 MG/70 ML BAG IV STA (15:13)
[2022-07-10 16:47] LABS: BUN Creatinine Ratio 32.7 (10-20); Calcium 10.9 mg/dl (8.5-10.1); Creatinine Clr Calc Pharmacy 23.1 ml/min; Est GFR (African American) 31.3 ml/min; Potassium 4.8 mmol/L (3.5-5.1)
[2022-07-10] MEDS ORDERED: DEXTROSE 50% 50 ML SYRINGE IV ONE (17:27)
[2022-07-10] MEDS ORDERED: GLUCAGON FOR INJ 1 MG VIAL SQ PRN (17:28)
[2022-07-10] MEDS ORDERED: GLUCOSE 40% GEL 15 GM TUBE PO PRN (17:28)
[2022-07-10] MEDS ORDERED: DEXTROSE 50% 50 ML SYRINGE IV PRN (17:28)
[2022-07-10] MEDS ORDERED: PHARMACY GLYCEMIC MGMT CONSULT PRN (17:28)
[2022-07-10] MEDS ORDERED: GLUCOSE 10 TAB/TUBE PO PRN (17:28)
[2022-07-10] MEDS: INSULIN ASPART PER UNIT SC SCH (20:10)
[2022-07-10 20:40] LABS: Appearance Urine Clear (Clear); Bacteria Urine Automated Negative (Negative); Bilirubin Urine Negative (Negative); Blood Urine Negative (Negative); Cast Urine Automated 0 /lpf (0-5); Color Urine Yellow; Glucose Urine UA Negative (Negative); Ketones Urine Negative (Negative); Leukocyte Esterase Urine 1+ (Negative); Nitrite Urine Negative (Negative); Protein Urine Trace (Negative); Specific Gravity Urine 1.006 (1.000-1.030); Urobilinogen Urine Negative (Negative)
[2022-07-10 20:48] LABS: RBC Urine Automated 0-4 /hpf (0-4)
[2022-07-10] MEDS ORDERED: LANTUS PER UNIT CHARGE SQ SCH (21:00)
[2022-07-10] MEDS ORDERED: SODIUM CHLORIDE 1 GM TABLET PO SCH (21:00)
--- NOTE | 2022-07-10 23:18 | Electrocardiogram Report ---
Test Reason : Blood Pressure : / mmHG Vent. Rate : 075 BPM Atrial Rate : 069 BPM P-R Int : 000 ms QRS Dur : 146 ms QT Int : 442 ms P-R-T Axes : 000 113 -50 degrees QTc Int : 493 ms Atrial fibrillation Right bundle branch block Possible Anterior infarct (cited on or before 10-JUL-2022) T wave abnormality, consider inferior ischemia Abnormal ECG When compared with ECG of 17-FEB-2018 06:22, Atrial fibrillation has replaced Sinus rhythm Right bundle branch block is now Present Questionable change in initial forces of Anteroseptal leads Confirmed by Darrius Escamilla ([id number]) on 07/10/2022 11:18:29 PM Referred By: REFERRED SELF Confirmed By:Inderjit Escamilla
[2022-07-11] MEDS: CARBOHYDRATES FOR HYPOGLYCEMIA PO PRN ×5 (01:36→15:22)
[2022-07-11] MEDS: LEVOTHYROXINE SODIUM 88 MCG TABLET PO SCH (05:42)
[2022-07-11 05:59] LABS: Hemoglobin 13.1 g/dl (12.0-16.0); Mean Corpuscular Hemoglobin 29.9 pg (25.0-34.0); Mean Corpuscular Hgb Conc 34.5 g/dL (32.0-36.0); Mean Corpuscular Volume 86.8 fL (80.0-100.0); Mean Platelet Volume 10.3 fL (9.4-12.4); Platelet Count 194 K/uL (130-400); RDW Coefficient of Variation 13.5 % (11.5-14.5); RDW Standard Deviation 42.7 fL (36.4-46.3); Red Blood Count 4.38 M/uL (4.20-5.40); White Blood Count 12.82 K/ul (4.8-10.8)
[2022-07-11 06:15] LABS: BUN Creatinine Ratio 31.2 (10-20); Calcium 9.4 mg/dl (8.5-10.1); Creatinine Clr Calc Pharmacy 25.2 ml/min; Est GFR (African American) 34.8 ml/min
[2022-07-11] MEDS ORDERED: FUROSEMIDE INJ 20 MG/2 ML VIAL IV ONE ×3 (08:12→14:30)
[2022-07-11 08:16] LABS: Estimated Average Glucose 148 mg/dl; Hemoglobin A1C 6.8 % (4.5-5.6)
--- NOTE | 2022-07-11 08:22 | Nephrology Consultation ---
Date of Consultation July 11, 2022 Assessment & Plan (1) Hyponatremia: Goal Na is 130 tomorrow AM; attributed to volume overload in this setting. -stopped salt tabs > inappropriate w/ HF -ordered 1.5L FR -ordered lasix 20 mg IV x 1 this am -ordered recheck bmp 1300 >> based on these results will give another 30 mg IV lasix and recheck bmp 2000 ordered (2) CKD (chronic kidney disease) stage 4, GFR 15-29 ml/min: Renal function currently better than baseline of 1.5-1.6; hx of nephrotic range proteinuria in the setting of pessary use -daily bmp -intermittent low dose lasix -continue to hold ACEI for now History of Present Illness Reason for Consultation: renal insufficiency and hyperkalemia Requesting Physician: Dr Lindquist Attending Physician: Alena Lindquist MD History of Present Illness 86 y/o F whom I'm asked to see for hyperkalemia and renal insufficiency was admitted yesterday afternoon for acute on chronic systolic heart failure after presenting with worsening dyspnea, pneumonia, and electrolyte disorders including sodium 125 and K 6.2. This AM sodium is 124 and K 5. complex PMH includes CKD4 w/ nephrotic range proteinuria and baseline creatinine in the high ones (1.6-2), ischemic stroke on plavix, left CEA, SIADH, cystocele w/ pessary. When I last saw in early May 2022, her weights at home were running at about 157 pounds daily. She has had an exceptionally eventful 3 to 4 months clinically, with multiple admissions to [facility]. In fall 2021, she underwent emergent right lower extremity thrombectomy due to limb ischemia in [place]. Also hospitalized for heart failure for 3 days late March with hyponatremia. She was fairly recently admitted to [facility] 06/28 - 07/03 for HF and new onset A fib. Notably she was discharged from that admission on no diuretics. Pt and family are interested in transitioning to home with hospice but are also requesting cardiology evaluation. Allergies Allergy/AdvReac Type Severity Reaction Status Date / Time No Known Allergies Allergy Unverified 02/15/18 23:50 Home Medications Medication Instructions Recorded Confirmed Type atorvastatin 20 mg tablet 20 mg PO DAILY 02/15/18 07/10/22 History calcium carbonate 600 mg-vitamin 1 tab PO DAILY 02/15/18 07/10/22 History D3 20 mcg (800 unit) chewable tablet (Caltrate 600 plus D) conjugated estrogens 0.625 mg/gram 1 applic vaginal 2XWK 02/15/18 07/10/22 Hi story vaginal cream furosemide 40 mg tablet 20 mg PO HS 02/15/18 07/10/22 History levothyroxine 88 mcg tablet 88 mcg PO DAILY 02/15/18 07/10/22 History lutein 10 mg tablet 6 mg PO BID 02/15/18 07/10/22 History metformin 1,000 mg tablet 1,000 mg PO BID 02/15/18 07/10/22 History omega 7-nff-kdg-fish oil 1,000 mg 2,000 mg PO DAILY 02/15/18 07/10/22 History (120 mg-180 mg) capsule (Fish Oil) sertraline 25 mg tablet 25 mg PO DAILY 02/15/18 07/10/22 History sodium chloride 1 gram tablet 1,000 mg PO HS 02/15/18 07/10/22 History vitamins A,C,V-dbjo-janetc 2,148 1 tab PO DAILY 02/15/18 07/10/22 History mcg-113 mg-45 mg-17.4 mg tablet (PreserVision AREDS) aspirin 81 mg chewable tablet 81 mg PO DAILY #30 tabs 02/20/18 07/10/22 Rx Patient History Medical History (Updated 07/11/22 @ 08:22 by Amelia Moore MD, PhD) CKD (chronic kidney disease) stage 4, GFR 15-29 ml/min DM type 2 (diabetes mellitus, type 2) Dyslipidemia Goals of care, counseling/discussion History of CVA (cerebrovascular accident) Hypertension Hyponatremia Hypothyroidism Mitral valve regurgitation "severe per echo 10/07/17" Osteoarthritis SIADH (syndrome of inappropriate ADH production) Stroke Systolic CHF, chronic "echo 10/07/17 LVEF 40-45%" Surgical History History of cataract surgery History of hernia repair Hx of cholecystectomy Family History Other No significant family history Social History Smoking Status: Former smoker Second Hand Exposure: No; Hx Alcohol Use: No Hx Substance Use: No Preferred Language: Ukrainian Communication Ability: Effective 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 Operator Required: No Beliefs That Will Affect Care: None Current Living Situation: Family Current Living Situation Comment: Lives with son Other Information That Helps Us Care for You: No Feels Safe at Home: Yes Safety Concerns: Feels Safe At This Time Assistive Devices: Denture - Lower, Glasses and Walker Review of Systems Review of Systems: All systems reviewed & are unremarkable except as noted in HPI & below Physical Exam Constitutional: well developed, well nourished, + frail appearing and co operative; no acute distress Eyes: EOM intact bilaterally ENMT: Ears: no external ear abnormality Nose: no external nose abnormality Mouth: + dry oral mucous membranes Neck: no nuchal rigidity Respiratory: normal respiratory effort, + labored breathing (with exam maneuvers) and + tachypneic; no cough Auscultation: + diminished lung sounds and + crackles (R sided only) Cardiovascular: Rate/Rhythm: regular rate and regular rhythm Extremities: no edema Gastrointestinal (Abdomen): Inspection/Auscultation: normal bowel sounds Percussion/Palpation: abdomen soft; abdomen nontender Musculoskeletal: Extremities: strength 5/5 throughout Skin: no rashes, warm and dry Neurologic: dave, fluent speech, no tremor Psychiatric: Orientation: oriented to person and oriented to place Speech: normal rate/rhythm/volume of speech Results & Data ([facility]) Vital Signs (Past 12 Hours) Vital Signs Temp Pulse Pulse Resp BP Pulse Ox O2 Del Method 07/11/22 07:30 86 07/11/22 06:04 36.6 C 07/11/22 05:25 36.4 C L 07/11/22 04:45 35.8 C L 07/11/22 04:14 35.4 C L 07/11/22 03:45 35.5 C L 07/11/22 02:22 86 20 115/72 96 Room Air 07/11/22 02:53 35.4 C L 07/10/22 23:41 77 07/10/22 22:00 36.5 C 80 20 122/87 95 Room Air Laboratory Results 07/11/22 05:25 07/11/22 05:25
--- NOTE | 2022-07-11 08:29 | XRay Report ---
XR chest 1V portable HISTORY: 86 years-old Female pulmonary edema acute shortness of breath COMPARISON: Chest radiograph 07/10/2022 TECHNIQUE: AP view of the chest FINDINGS: Cardiac silhouette is enlarged. Poorly vascular congestion with interstitial coarsening. No pneumotho rax. Trace pleural effusions with mild bibasilar densities, similar to yesterday's exam. Unchanged be nign-appearing sclerosis of the proximal right humerus. Degenerative changes of the shoulders and spi ne. IMPRESSION: 1. Cardiomegaly with unchanged interstitial pulmonary edema and trace pleural effusions. 2. Mild bibasilar densities redemonstrated favoring atelectasis. ACT 112: Negative or not required by law. The above report was generated using voice recognition software. It may contain grammatical, syntax o r spelling errors. Electronically signed by: Singh Raines M.D. 07/11/2022 8:28 AM
[2022-07-11] MEDS: INSULIN ASPART PER UNIT SC SCH ×4 (08:33→20:24)
[2022-07-11] MEDS: ASPIRIN 81 MG CHEW PO SCH (08:34)
[2022-07-11] MEDS: SERTRALINE HCL 50 MG TABLET PO SCH (08:34)
[2022-07-11] MEDS: CEROVITE ADV FORMULA TAB PO SCH (08:34)
[2022-07-11] MEDS: ATORVASTATIN 20 MG TAB PO SCH (08:35)
[2022-07-11] MEDS: CALCIUM 600MG + VIT D 400 IU TAB PO SCH (08:35)
[2022-07-11 13:32] LABS: BUN Creatinine Ratio 28.2 (10-20); Calcium 9.5 mg/dl (8.5-10.1); Creatinine Clr Calc Pharmacy 23.4 ml/min; Est GFR (African American) 32.5 ml/min; Potassium 5.2 mmol/L (3.5-5.1)
--- NOTE | 2022-07-11 13:46 | Pharmacy Report ---
Pharmacy Glycemic Short Note 2 - Date of Service July 11, 2022 - Glycemic Short BSG Results (Last 24 hours): 07/10/22 07/10/22 07/10/22 15:54 17:19 17:49 Glucose 54 L POC Glucose 36 L* 187 H 07/10/22 07/11/22 07/11/22 18:38 01:33 01:54 Glucose POC Glucose 123 H 43 L* 61 L* 07/11/22 07/11/22 07/11/22 02:18 05:25 06:20 Glucose 61 L POC Glucose 76 65 L* 07/11/22 07/11/22 07/11/22 06:39 07:43 11:33 Glucose POC Glucose 86 143 H 57 L* 07/11/22 07/11/22 07/11/22 11:35 12:10 12:45 Glucose 72 POC Glucose 61 L* 77 OUTPATIENT ANTIDIABETIC REGIMEN: * metformin 1000 mg PO BID * Tradjenta 5 mg daily * Lantus 54 units daily * Novolog 12 units with meals ASSESSMENT: * Ms Salmeron is an 86 y/o F with a PMH fo T2DM who presents with CHF and hyperkalemia. * Patient was given D50 - 50mL + 10 units IV insulin for hyperkalemia and had hypoglycemic event. * Patient's BSGs have remained lower than goal range (most < 70 mg/dL). Patient received 6 units of Lantus yesterday evening. * This morning goal range was increased to 140-180 mg/dL. * Patient's fasting was 142 mg/dL and then patient had hypoglycemic event after 1 unit of Novolog. Carbohydrate ratio removed. * Will hold basal insulin until BSGs consistently > 120 mg/dL. PLAN FOR INPATIENT GLYCEMIC CONTROL: * Hold outpatient oral diabetes medications * Basal insulin * HOLD * Bolus insulin * NovoLog per scale ACHS or Q6hrs while NPO * Goal Range: Low 1400 mg/dL - High 180 mg/dL * Correction Factor: 30 mg/dL/unit * Nutritional / Prandial insulin per carb ratio of 1 unit per - grams CHO consumed
--- NOTE | 2022-07-11 15:16 | Hospitalist Progress Note ---
Date of Service July 11, 2022 Assessment & Plan (1) Systolic CHF, chronic: (2) Pulmonary edema: (3) Abnormal EKG: (4) CKD (chronic kidney disease), stage III: (5) Hypertension: (6) Dyslipidemia: (7) DM type 2 (diabetes mellitus, type 2): (8) SIADH (syndrome of inappropriate ADH production): (9) History of CVA (cerebrovascular accident): (10) Hypothyroidism: (11) Goals of care, counseling/discussion: Plan Acute on chronic Systolic CHF: Pulmonary edema: Comes in w/ SOB, Weight gain. 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 ECHO 10/08 LVEF 40 to 45%; echo 06/29/2022 EF 20%; mild to moderate MR and TR IV diuresis per nephro and cardio, villafana for I/Os monitoring. FR 1500ml, tele. 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 Nephro on board, appreciate recs. CKD stage III: Baseline creatinine 1.4-1.9 over the past year; currently at baseline. Goals of Care; counseling: -Lengthy goals of care conversation held with patient and her family at the bedside. Patient lives with her son and daughter visits every day. There are 10 adult children involved in Mai's life. Mai was able to state that should her life be limited she would prefer to avoid future from hospitalizations and return home to focus on quality of life versus quantity. We discussed the difference between palliative medicine and hospice medicine. We discussed that patient would qualify for hospice with a diagnosis of congestive heart failure. Patient lives in a two-story home but has access to everything she needs on one story. Family in agreement to have specialist evaluation while here in the hospital but would avoid intervention at all cost. -Confirmed patient is DNR/DNI. Patient does have with a living will indicating she would not want to pursue hemodialysis, IV hydration or nutrition or ACLS intervention, including vasoactive medications should she decline. -If no improvement with patient's breathing from diuretics family is receptive to Roxanol PRN. Poor appetite reported lately. -Case management consult placed; no need for additional palliative medicine consultation placement as decision decided upon for returning home with hospice with all family in agreement upon discharge. Family lives in [facility]. Dyslipidemia: Takes atorvastatin; continue DM type II: Takes Tradjenta and was recently started on Lantus; will hold all oral diabetes medications while inpatient Placed on ACHS FSBS SSI SIADH: Takes sodium chloride tablets; hold d/t heart failure History of CVA: Takes Eliquis; continue for now Discussed risk versus benefit with family. No recent falls to date Hypothyroidism: Takes levothyroxine; continue Recheck TSH Depression: Takes sertraline; continue Disposition: PCP: Dr. Camacho CODE STATUS: DNR/DNI VTE prophylaxis: Teds and SCDs for now Next of kin daughterBetzy: [phone] Dispo: CM to assist w/ dc plan. Admission and Anticipated Discharge Date Admission Date: July 10, 2022 Subjective Patient seen and examined at bedside as a follow-up of acute on chronic systolic heart failure, pulmonary edema, pneumonia, hyponatremia, hyperkalemia. Patient was lying in bed, on room air, NAD, was hypothermic overnight/bear hugge r was used/normothermic at bedside exam, reports feeling tired today otherwise feels better, reports having BM yesterday, reports having poor appetite, denies fever chills or headache or chest pain or difficulty breathing. Physical Exam Physical Exam: GENERAL: Alert and oriented x3. NAD, on RA. appears chronically ill/frail/weak HEENT: No pallor, no icterus. Pupils equal, round and reactive to light. Oral mucosa moist. NECK: No JVD, no neck masses. HEART: S1 and S2 heard. irregular rate and rhythm. No murmur, no gallop. RESPIRATORY SYSTEM: Normal AP diameter. No accessory muscle use. No wheezing, b/b crackles. ABDOMEN: Soft, bowel sounds present, nontender, no distention. CENTRAL NERVOUS SYSTEM: No facial droop. Speech is clear. Obeys simple commands. Moves extremities. EXTREMITIES: No edema, no erythema seen. Results & Data Results & Data ([facility]) Vital Signs (Past 12 Hours) Vital Signs Temp Pulse Pulse Resp BP Pulse Ox O2 Del Method 07/11/22 12:28 Room Air 07/11/22 11:11 36.5 C 88 18 108/66 96 Room Air 07/11/22 10:11 36.6 C 07/11/22 09:01 36.7 C 07/11/22 08:15 36.9 C 07/11/22 07:45 36.6 C 100 H 19 131/69 99 Room Air 07/11/22 07:30 86 07/11/22 06:04 36.6 C 07/11/22 05:25 36.4 C L 07/11/22 04:45 35.8 C L 07/11/22 04:14 35.4 C L 07/11/22 03:45 35.5 C L (2) Pulmonary edema Chronicity: acute Qualified Code(s): J81.0 - Acute pulmonary edema
--- NOTE | 2022-07-11 15:25 | Cardiology Consultation ---
Date of Consultation July 11, 2022 Assessment & Plan (1) Acute diastolic CHF, NYHA class 2 and ACC/AHA stage C: (2) SIADH (syndrome of inappropriate ADH production): (3) Mitral valve regurgitation: (4) Carotid stenosis, symptomatic, with infarction: (5) Stenosis of left internal carotid artery: (6) Pulmonary edema: (7) Acute hyponatremia: (8) History of CVA (cerebrovascular accident): (9) Acute hyperkalemia: (10) CKD (chronic kidney disease) stage 4, GFR 15-29 ml/min: (11) Goals of care, counseling/discussion: Plan I agree that the patient presents in end-stage heart failure. I believe that home hospice care is very ferris To increase comfort and decrease shortness of breath recommend discharge to home on furosemide 60 mg p.o. twice daily Along with as needed IV Lasix per outpatient protocols to be due to delivered by hospice nursing The patient and family all state that they agree with this plan Okay to DC on home hospice from a cardiac standpoint History of Present Illness Reason for Consultation: End-stage heart failure treatment Requesting Physician: Rebecca hospitalist group Attending Physician: Alena Lindquist MD History of Present Illness It was my pleasure to see the patient in cardiac consultation today July 03, 2022. She is a very pleasant yet medically complex 86-year-old woman who presented to [facility] on 07/10/2022 from her PCPs office for worsening shortness of breath and swelling. She was recently admitted twice to [facility] in [place] for non-ST segment elevation myocardial infarction's and acute decompensated systolic heart failure with an ejection fraction now less than 20%. Upon arrival to the emergency department she was found to be significantly volume overloaded with a potassium of 6.2 and sodium of 125. She received IV Lasix with significant improvement of her symptoms. The patient and family expressed her desires for home hospice care for the patient given her end-stage heart failure and asked for cardiac consultation before discharge. Currently she states that she feels well at rest. Allergies Allergy/AdvReac Type Severity Reaction Status Date / Time No Known Allergies Allergy Unverified 02/15/18 23:50 Home Medications Medication Instructions Recorded Confirmed Type atorvastatin 20 mg tablet 20 mg PO DAILY 02/15/18 07/10/22 History calcium carbonate 600 mg-vitamin 1 tab PO DAILY 02/15/18 07/10/22 History D3 20 mcg (800 unit) chewable tablet (Caltrate 600 plus D) conjugated estrogens 0.625 mg/gram 1 applic vaginal 2XWK 02/15/18 07/10/22 History vaginal cream furosemide 40 mg tablet 20 mg PO HS 02/15/18 07/10/22 History levothyroxine 88 mcg tablet 88 mcg PO DAILY 02/15/18 07/10/22 History lutein 10 mg tablet 6 mg PO BID 02/15/18 07/10/22 History metformin 1,000 mg tablet 1,000 mg PO BID 02/15/18 07/10/22 History omega 2-vys-rue-fish oil 1,000 mg 2,000 mg PO DAILY 02/15/18 07/10/22 History (120 mg-180 mg) capsule (Fish Oil) sertraline 25 mg tablet 25 mg PO DAILY 02/15/18 07/10/22 History sodium chloride 1 gram tablet 1,000 mg PO HS 02/15/18 07/10/22 History vitamins A,C,X-fwty-vggdkz 2,148 1 tab PO DAILY 02/15/18 07/10/22 History mcg-113 mg-45 mg-17.4 mg tablet (PreserVision AREDS) aspirin 81 mg chewable tablet 81 mg PO DAILY #30 tabs 02/20/18 07/10/22 Rx Patient History Medical History CKD (chronic kidney disease) stage 4, GFR 15-29 ml/min DM type 2 (diabetes mellitus, type 2) Dyslipidemia Goals of care, counseling/discussion History of CVA (cerebrovascular accident) Hypertension Hyponatremia Hypothyroidism Mitral valve regurgitation "severe per echo 10/07/17" Osteoarthritis SIADH (syndrome of inappropriate ADH production) Stroke Systolic CHF, chronic "echo 10/07/17 LVEF 40-45%" Surgical History History of cataract surgery History of hernia repair Hx of cholecystectomy Family History Other No significant family history Social History Smoking Status: Former smoker Second Hand Exposure: No; Hx Alcohol Use: No Hx Substance Use: No Preferred Language: Fijian Communication Ability: Effective 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 No acute distress. HEENT: Normocephalic, atraumatic. Pupils equal, round and reactive to light and accommodation. Extraocular muscles are intact. Anicteric sclera. Moist mucous membranes. Neck: No JVD. No bruit. Cardiovascular: Regular. Positive S-4. Normal S-1 and S-2. No S-3. 3/6 mid to late systolic ejection murmur, greatest at the right sternal border, second intercostal space with radiation to the bilateral carotids. No rubs. Pulmonary: Clear to auscultation bilaterally. No rales, rhonchi, or wheezing. Abdomen: Bowel sounds x 4, soft. No rebound, guarding or tenderness. No organomegaly. Extremities: No clubbing, cyanosis or edema. +2 pedal pulses bilaterally. Skin: Warm and dry. Results & Data ([facility]) Vital Signs (Past 12 Hours) Vital Signs Temp Pulse Pulse Resp BP Pulse Ox O2 Del Method 07/11/22 12:28 Room Air 07/11/22 11:11 36.5 C 88 18 108/66 96 Room Air 07/11/22 10:11 36.6 C 07/11/22 09:01 36.7 C 07/11/22 08:15 36.9 C 07/11/22 07:45 36.6 C 100 H 19 131/69 99 Room Air 07/11/22 07:30 86 07/11/22 06:04 36.6 C 07/11/22 05:25 36.4 C L 07/11/22 04:45 35.8 C L 07/11/22 04:14 35.4 C L 07/11/22 03:45 35.5 C L (6) Pulmonary edema Chronicity: acute Qualified Code(s): J81.0 - Acute pulmonary edema
[2022-07-11] MEDS: cefTRIAXone SODIUM 2,000 MG in DEXTROSE 5% 50 ML IV SCH (16:07)
[2022-07-11 20:29] LABS: BUN Creatinine Ratio 29.3 (10-20); Calcium 9.2 mg/dl (8.5-10.1); Creatinine Clr Calc Pharmacy 24.3 ml/min; Est GFR (Non-African American) 29.3 ml/min; Potassium 4.8 mmol/L (3.5-5.1)
[2022-07-12] MEDS: CARBOHYDRATES FOR HYPOGLYCEMIA PO PRN ×2 (02:30→07:46)
[2022-07-12] MEDS: LEVOTHYROXINE SODIUM 88 MCG TABLET PO SCH (05:55)
[2022-07-12 06:25] LABS: Hematocrit (blood only) 36.8 % (37.0-47.0); Hemoglobin 12.6 g/dl (12.0-16.0); Mean Corpuscular Hemoglobin 29.7 pg (25.0-34.0); Mean Corpuscular Hgb Conc 34.2 g/dL (32.0-36.0); Mean Corpuscular Volume 86.8 fL (80.0-100.0); Mean Platelet Volume 10.2 fL (9.4-12.4); Platelet Count 207 K/uL (130-400); RDW Coefficient of Variation 13.6 % (11.5-14.5); RDW Standard Deviation 41.9 fL (36.4-46.3); Red Blood Count 4.24 M/uL (4.20-5.40); White Blood Count 10.75 K/ul (4.8-10.8)
[2022-07-12 06:42] LABS: Anion Gap 3 (3-11); BUN Creatinine Ratio 27.6 (10-20); Blood Urea Nitrogen 43 mg/dl (6-23); Calcium 8.6 mg/dl (8.5-10.1); Carbon Dioxide 27 mmol/L (21-32); Chloride 92 mmol/L (98-107); Creatinine Clr Calc Pharmacy 24.1 ml/min; Est GFR (African American) 34.3 ml/min; Est GFR (Non-African American) 29.6 ml/min; Glucose 104 mg/dl (70-99(Fasting)); Magnesium 1.9 mg/dl (1.7-2.4); Phosphorus 3.3 mg/dl (2.5-4.9); Sodium 122 mmol/L (136-145)
[2022-07-12] MEDS: INSULIN ASPART PER UNIT SC SCH ×4 (07:46→20:42)
[2022-07-12] MEDS: CALCIUM 600MG + VIT D 400 IU TAB PO SCH (08:25)
[2022-07-12] MEDS: ASPIRIN 81 MG CHEW PO SCH (08:25)
[2022-07-12] MEDS: ATORVASTATIN 20 MG TAB PO SCH (08:25)
[2022-07-12] MEDS: CEROVITE ADV FORMULA TAB PO SCH (08:25)
[2022-07-12] MEDS: SERTRALINE HCL 50 MG TABLET PO SCH (08:25)
--- NOTE | 2022-07-12 14:18 | Nephrology Progress Note ---
Date of Service July 12, 2022 Assessment & Plan (1) Hyponatremia: Plan: I discussed with the patient and her family that if she is going home on hospice which is their plan we should not be trying too hard to fix the sodium because we have to check labs quite frequently to do that. Patient and her family are in agreement. -started po lasix as below to start this PM -reasonable to do daily labs in hospital - small adjustments ok but not intensive efforts to correct sodium NEPHROLOGY DISCHARGE RECOMMENDATIONS -do NOT discharge on salt tablets -agree w/ plan for lasix 60 mg po TWO daily doses AT least 4 hours apart -IV lasix as per hospice protocols -consider 1.5 L daily fluid limit if not too bothersome to patient -encourage higher potassium foods 1-2 servings daily -d/c on 10 mEq po potassium twice daily will sign off; thank you for the opportunity to follow this patient's care (2) CKD (chronic kidney disease) stage 4, GFR 15-29 ml/min: Plan: Renal function currently at baseline of 1.5-1.6; hx of nephrotic range proteinuria in the setting of pessary use -daily bmp reasonable while still in hospital -lasix as above -no indication for Temo/ARB in this setting Admission and Anticipated Discharge Date Admission Date: July 10, 2022 Subjective Seen on rounds with family at bedside midday. Patient tells me she is feeling better than when she arrived. Feels her breathing is adequate and edema well controlled. No nausea vomiting. No new or worrisome voiding concerns. Ambulating to the bathroom with walker without pain or difficulty Review of Systems Review of Systems: All systems reviewed & are unremarkable except as noted in Subjective Physical Exam Constitutional: well developed, well nourished, + frail appearing and cooperative; no acute distress Eyes: EOM intact bilaterally ENMT: Ears: no external ear abnormality Nose: no external nose abnormality Mouth: + dry oral mucous membranes Neck: no nuchal rigidity Respiratory: normal respiratory effort and + tachypneic; no cough Auscultation: + diminished lung sounds and + crackles (Fine right base) Cardiovascular: Rate/Rhythm: regular rate and regular rhythm Extremities: no edema Gastrointestinal (Abdomen): Inspection/Auscultation: normal bowel sounds Percussion/Palpation: abdomen soft; abdomen nontender Musculoskeletal: Extremities: strength 5/5 throughout Skin: no rashes, warm and dry Psychiatric: Orientation: oriented to person and oriented to place Speech: normal rate/rhythm/volume of speech Results & Data ([facility]) Vital Signs (Past 12 Hours) Vital Signs Temp Pulse Pulse Resp BP Pulse Ox O2 Del Method 07/12/22 10:51 36.8 C 111 H 20 130/74 95 Room Air 07/12/22 10:25 Room Air 07/12/22 07:31 115 H 07/12/22 06:11 36.4 C L 103 H 18 122/77 98 Room Air 07/12/22 03:45 36.5 C 104 H 20 127/69 96 Room Air Laboratory Results 07/12/22 05:24 07/12/22 06:59
[2022-07-12] MEDS: POTASSIUM CHLORIDE 10 MEQ TABCR PO SCH (16:12)
[2022-07-12] MEDS: FUROSEMIDE 20 MG TAB PO SCH (16:12)
[2022-07-12] MEDS: cefTRIAXone SODIUM 2,000 MG in DEXTROSE 5% 50 ML IV SCH (16:12)
--- NOTE | 2022-07-12 16:28 | Hospitalist Progress Note ---
Date of Service July 12, 2022 Assessment & Plan (1) Systolic CHF, chronic: (2) Pulmonary edema: (3) Abnormal EKG: (4) CKD (chronic kidney disease), stage III: (5) Hypertension: (6) Dyslipidemia: (7) DM type 2 (diabetes mellitus, type 2): (8) SIADH (syndrome of inappropriate ADH production): (9) History of CVA (cerebrovascular accident): (10) Hypothyroidism: (11) Goals of care, counseling/discussion: Plan Acute on chronic Systolic CHF: Pulmonary edema: Comes in w/ SOB, Weight gain. 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 ECHO 10/08 LVEF 40 to 45%; echo 06/29/2022 EF 20%; mild to moderate MR and TR Nephro and cardio evaled. d/w Family, no further labs/ok w/ fingerstick glucose c/w meds for now though, liberalize diet If pt under distress or deteriorates, then can institute comfort measures even at hospital per family. 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 Sputum culture pending Hyponatremia/hyperkalemia: 2/ poor appetite and advancing heart failure. Nephro evaled, appreciate recs. No further labs per family. CKD stage III: Baseline creatinine 1.4-1.9 over the past year; currently at baseline. Goals of Care; counseling: -Lengthy goals of care conversation held with patient and her family at the bedside. Patient lives with her son and daughter visits every day. There are 10 adult children involved in Mai's life. Mai was able to state that should her life be limited she would prefer to avoid future from hospitalizations and return home to focus on quality of life versus quantity. We discussed the difference between palliative medicine and hospice medicine. We discussed that patient would qualify for hospice with a diagnosis of congestive heart failure. Patient lives in a two-story home but has access to everything she needs on one story. Family in agreement to have specialist evaluation while here in the hospital but would avoid intervention at all cost. -Confirmed patient is DNR/DNI. Patient does have with a living will indicating she would not want to pursue hemodialysis, IV hydration or nutrition or ACLS intervention, including vasoactive medications should she decline. -If no improvement with patient's breathing from diuretics family is receptive to Roxanol PRN. Poor appetite reported lately. -Case management consult placed; no need for additional palliative medicine consultation placement as decision decided upon for returning home with hospice with all family in agreement upon discharge. Family lives in [facility]. Dyslipidemia: Takes atorvastatin; continue DM type II: Takes Tradjenta and was recently started on Lantus; will hold all oral diabetes medications while inpatient Placed on ACHS FSBS SSI SIADH: Takes sodium chloride tablets; hold d/t heart failure History of CVA: Takes Eliquis; continue for now Discussed risk versus benefit with family. No recent falls to date Hypothyroidism: Takes levothyroxine; continue Depression: Takes sertraline; continue Disposition: PCP: Dr. Camacho CODE STATUS: DNR/DNI VTE prophylaxis: Teds and SCDs for now Next of kin daughterBetzy: [phone] Dispo: CM to assist w/ dc plan. Plan for home w/ hospice. No further labs except for fingersticks per family. If pt under distress or deteriorates can institute comfort measures at hospital per family. Admission and Anticipated Discharge Date Admission Date: July 10, 2022 Subjective Patient seen and examined at bedside as a follow-up of acute on chronic systolic heart failure, pulmonary edema, pneumonia, hyponatremia, hyperkalemia. Patient was lying in bed, on room air, NAD, no new acute events overnight, reports feeling better and eating better, reports having BM ok, denies fever chills or headache or chest pain or difficulty breathing. Physical Exam Physical Exam: GENERAL: Alert and oriented x3. NAD, on RA. appears chronically ill/frail/weak HEENT: No pallor, no icterus. Pupils equal, round and reactive to light. Oral mucosa moist. NECK: No JVD, no neck masses. HEART: S1 and S2 heard. irregular rate and rhythm. No murmur, no gallop. RESPIRATORY SYSTEM: Normal AP diameter. No accessory muscle use. No wheezing, b/b crackles. ABDOMEN: Soft, bowel sounds present, nontender, no distention. CENTRAL NERVOUS SYSTEM: No facial droop. Speech is clear. Obeys simple commands. Moves extremities. EXTREMITIES: No edema, no erythema seen. Results & Data Results & Data ([facility]) Vital Signs (Past 12 Hours) Vital Signs Temp Pulse Pulse Resp BP Pulse Ox Pulse Ox 07/12/22 15:48 97 H 07/12/22 15:15 36.6 C 101 H 18 120/77 95 07/12/22 14:00 93 07/12/22 10:51 36.8 C 111 H 20 130/74 95 07/12/22 10:25 07/12/22 07:31 115 H 07/12/22 06:11 36.4 C L 103 H 18 122/77 98 O2 Del Method O2 Del Method 07/12/22 15:48 07/12/22 15:15 Room Air 07/12/22 14:00 Room Air 07/12/22 10:51 Room Air 07/12/22 10:25 Room Air 07/12/22 07:31 07/12/22 06:11 Room Air (2) Pulmonary edema Chronicity: acute Qualified Code(s): J81.0 - Acute pulmonary edema
[2022-07-13] MEDS: LEVOTHYROXINE SODIUM 88 MCG TABLET PO SCH (05:48)
[2022-07-13] MEDS: ASPIRIN 81 MG CHEW PO SCH (08:30)
[2022-07-13] MEDS: CEROVITE ADV FORMULA TAB PO SCH (08:30)
[2022-07-13] MEDS: SERTRALINE HCL 50 MG TABLET PO SCH (08:31)
[2022-07-13] MEDS: CALCIUM 600MG + VIT D 400 IU TAB PO SCH (08:31)
[2022-07-13] MEDS: POTASSIUM CHLORIDE 10 MEQ TABCR PO SCH (08:31)
[2022-07-13] MEDS: ATORVASTATIN 20 MG TAB PO SCH (08:31)
[2022-07-13] MEDS: INSULIN ASPART PER UNIT SC SCH ×2 (08:32→12:30)
[2022-07-13] MEDS: FUROSEMIDE 20 MG TAB PO SCH (08:32)
--- NOTE | 2022-07-13 11:43 | Discharge Summary ---
Date of Service July 13, 2022 Admission HPI Per Admitting Provider Mai is an 86-year-old female who presented to the [facility] via EMS from her PCP office with shortness of breath, weight gain. Potassium 6.2, sodium 125, creatinine 1.68 (baseline creatinine 1.4-1.9 over past year) Patient recently discharged from [facility] with diagnosis of NSTEMI in the setting of ischemic demand and reduced EF. Today chest x-ray shows pulmonary edema with pleural effusions. Patient is a poor historian and family at bedside to provide most of the history. In ED patient received Lasix 40 mg IV, insulin with dextrose, IV calcium. BNP 958, troponin 86.4. Echo in EMR 10/08 LVEF 40 to 45%. Echo 06/29/2022 EF 20%, mild to moderate MR, mild to moderate TR. Patient takes Plavix Additional past medical history includes history of CVA(on Plavix), SIADH, HLD, HTN, CKD 3, NIDDM 2, depression and hypothyroidism. Lengthy goals of care conversation held with patient and her family at the bedside. Patient lives with her son and daughter visits every day. There are 10 adult children involved in Mai's life. Mai was able to state that should her life be limited she would prefer to avoid future from hospitalizations and return home to focus on quality of life versus quantity. We discussed the difference between palliative medicine and hospice medicine. We discussed that patient would qualify for hospice with a diagnosis of congestive heart failure. Patient lives in a two-story home but has access to everything she needs on one story. Family in agreement to have specialist evaluation while here in the hospital but would avoid intervention at all cost. Confirmed patient is DNR/DNI. Patient does have with a living will indicating she would not want to pursue hemodialysis, IV hydration or nutrition or ACLS intervention, including vasoactive medications should she decline. Patient denies headache, dizziness, chest pain, visual or auditory changes, abdominal pain, recent falls or trauma. On examination at bedside, patient is using diaphragmatic muscles for breathing assistance, has a nonproductive cough, grade 2/6 murmur auscultated left sternal border. Patient will be admitted for further evaluation and management. Please see A/P for further details. Admission Exam Per Admitting Provider Neuro: AAOx4, PERRLA, no aphagia, memory changes, CNII-XII grossly intact HEENT: head normocephalic, moist mucus membranes CV: S1/S2, (-) M/G/R, (-) edema, cap refill < 3 seconds Resp: Lungs CTA in all gamino. On RA GI: Abdomen S/NT/ND, Ax4 bowel sounds, (-) CVA tenderness Musculoskeletal: 5/5 B/L UE strength, 5/5 B/L LE strength. No gait disturbance Skin: (-) rashes , (-) erythema. Psych: euthymic mood Principal Diagnosis Acute on chronic systolic CHF End-stage heart failure Pneumonia CKD stage III Discharge Exam GENERAL: Alert and oriented x3. NAD, on RA. appears chronically ill/frail/weak HEENT: No pallor, no icterus. Pupils equal, round and reactive to light. Oral mucosa moist. NECK: No JVD, no neck masses. HEART: S1 and S2 heard. irregular rate and rhythm. No murmur, no gallop. RESPIRATORY SYSTEM: Normal AP diameter. No accessory muscle use. No wheezing, b/b crackles. ABDOMEN: Soft, bowel sounds present, nontender, no distention. CENTRAL NERVOUS SYSTEM: No facial droop. Speech is clear. Obeys simple commands. Moves extremities. EXTREMITIES: trace edema, no erythema seen. Discharge Data Allergies Allergy/AdvReac Type Severity Reaction Status Date / Time No Known Allergies Allergy Unverified 02/15/18 23:50 Consultations 07/10/22 14:25 ED Decision to Admit Stat 07/10/22 14:41 Consult Cardiology Routine 07/10/22 15:53 Consult Nephrology Routine Hospital Course (1) Systolic CHF, chronic: (2) Pulmonary edema: (3) Abnormal EKG: (4) CKD (chronic kidney disease), stage III: (5) Hypertension: (6) Dyslipidemia: (7) DM type 2 (diabetes mellitus, type 2): (8) SIADH (syndrome of inappropriate ADH production): (9) History of CVA (cerebrovascular accident): (10) Hypothyroidism: (11) Goals of care, counseling/discussion: Plan 86 F was managed for the following: Acute on chronic Systolic CHF: Pulmonary edema: Comes in w/ SOB, Weight gain. Admitting CXR pulmonary edema; pleural effusions Patient typically takes Lasix 20 mg nightly; wasn't taking for 6 days ALMOND SORTER on recs from PCP per pt's family. ECHO 10/08 LVEF 40 to 45%; echo 06/29/2022 EF 20%; mild to moderate MR and TR Nephro and cardio evaled. d/w Family, no further labs/ok w/ fingerstick glucose c/w meds for now though, liberalize diet If pt under distress or deteriorates, then can institute comfort measures even at hospital per family. On DC, lasix 60 mg bid w/ kcl 10 meq bid. Salt tablet being discontinued. Pneumonia: admitting CXR w/ RML pna; family noted increasing wet cough lately ALMOND SORTER Started Rocephin IV 07/10, continue w/ cefdinir on dc to complete course. Hyponatremia/hyperkalemia: 06/25 poor appetite and advancing heart failure. Nephro evaled, appreciate recs. No further labs per family. CKD stage III: Baseline creatinine 1.4-1.9 over the past year; currently at baseline. Goals of Care; counseling: -Lengthy goals of care conversation held with patient and her family at the bedside. Patient lives with her son and daughter visits every day. There are 10 adult children involved in Mai's life. Mai was able to state that should her life be limited she would prefer to avoid future from hospitalizations and return home to focus on quality of life versus quantity. We discussed the difference between palliative medicine and hospice medicine. We discussed that patient would qualify for hospice with a diagnosis of congestive heart failure. Patient lives in a two-story home but has access to everything she needs on one story. Family in agreement to have specialist evaluation while here in the hospital but would avoid intervention at all cost. -Confirmed patient is DNR/DNI. Patient does have with a living will indicating she would not want to pursue hemodialysis, IV hydration or nutrition or ACLS intervention, including vasoactive medications should she decline. -If no improvement with patient's breathing from diuretics family is receptive to Roxanol PRN. Poor appetite reported lately. -Case management consult placed; no need for additional palliative medicine consultation placement as decision decided upon for returning home with hospice with all family in agreement upon discharge. Family lives in [facility]. Dyslipidemia: Takes atorvastatin; continue DM type II: Takes Tradjenta and was recently started on Lantus; will hold all oral diabetes medications while inpatient Placed on ACHS FSBS SSI SIADH: Takes sodium chloride tablets; hold d/t heart failure History of CVA: Takes Eliquis; continue for now Discussed risk versus benefit with family. No recent falls to date Hypothyroidism: Takes levothyroxine; continue Depression: Takes sertraline; continue Disposition: PCP: Dr. Camacho CODE STATUS: DNR/DNI VTE prophylaxis: Teds and SCDs for now Next of kin daughterBetzy: [phone] Dispo: Patient being discharged home with hospice. Home Health Attestation I certify that this patient is under my care and that I, or a physicians publisher assistant working with me, had a face to-face encounter that meets the home health [id number] encounter requirements with this patient. The encounter with the patient was in whole, or in part, for the following medical condition, which is the primary reason for home health care (list medical condition): I certify that, based on my findings, the following services are medically necessary home health services: My clinical findings support the need for the above services because: Further, I certify that my clinical findings support that this patient is homebound (i.e. absences from home require considerable and taxing effort and are for medical reasons or congregational services or infrequently or of short duration when for other reasons) because: Certification for Home Health Services: Based on the above findings, I certify that this patient is confined to the home and needs intermittent usp care, physical therapy and/or speech therapy or continues to need occupational therapy. The patient is under my care, and I have initiated the establishment of the plan of care. This patient will be followed by a physician who will periodically review the plan of care. Total Time Total Time Spent Total Time Spent (In Minutes): 45 Discharge Plan Discharge Items Patient Disposition: Hospice - Home Reason For Visit: SOB/PULM EDEMA Discharge Diagnosis: Acute on chronic systolic CHF End-stage heart failure Pneumonia CKD stage III Activity: Resume your previous activity Non-emergency contact: Primary Care Provider Call non-emergency contact if: you have any medication questions and your pain is worsening Follow-up/Referrals: Madhav Camacho MD [Primary Care Provider] - Diet: Regular Addtl Attending Provider Instructions: You are being discharged to home with hospice, you will be discharged on antibiotic and other home medication. After hospice evaluates you at your home, they will take over your care and medications. Follow-up with the recommendation. You are being discharged on Lasix at increased dose, also potassium supplement whenever you are using Lasix doses. Also you are being discharged on antibiotic to complete the course of pneumonia treatment. Pending Studies at Discharge: No Stand-Alone Forms: [facility] Medications and DC Order Prescriptions: New furosemide 20 mg Tablet 60 mg PO [id number] Qty: 60 0RF potassium chloride 10 mEq Tablet,Er Particles/Crystals 10 meq PO BID17 Qty: 30 0RF Rx Instructions: take 1 tab upto twice a day when you are taking lasix doses. cefdinir 300 mg capsule 300 mg PO DAILY 5 Days Qty: 5 0RF Continued atorvastatin 20 mg tablet 20 mg PO DAILY levothyroxine 88 mcg tablet 88 mcg PO DAILY metformin 1,000 mg tablet 1,000 mg PO BID conjugated estrogens 0.625 mg/gram cream 1 applic Vaginal 2XWK sertraline 25 mg Tablet 25 mg PO DAILY lutein 10 mg Tablet 6 mg PO BID PreserVision AREDS [id number] Tablet 1 tab PO DAILY Caltrate 600 plus D 600 mg (1,500 mg)-800 unit Tablet,Chewable 1 tab PO DAILY aspirin 81 mg tablet,chewable 81 mg PO DAILY Qty: 30 12RF Discontinued furosemide 40 mg tablet 20 mg PO HS sodium chloride 1 gram Tablet 1,000 mg PO HS omega [id number]-fish oil [Fish Oil] 1,000 mg (120 mg-180 mg) Capsule 2,000 mg PO DAILY Discharge Orders: Discharge Order (Routine); Ordered 07/13/22 Ordered By: Alena Dunne/Other Patient Handouts: Hypoglycemia (Low Blood Sugar), Managing Type 2 Diabetes Admission Data Admit Date/Time: 07/10/22 14:41 Attending Provider: Alena Lindquist Admit Provider: Alena Lindqiust Primary Care Provider: Madhav Camacho Other Providers: Alena Lindquist ; Bhavin Caban
[2022-07-13] MEDS ORDERED: PREMARIN VAG CRM 14 APPLN/30 GM TUBE PV SCH (21:00)
== END 2022-07-13 13:43 | disposition hospice, home (50) | DRG 291 ==
LOC: ED 12:30 → 2N 14:41 → 3W 07-12 19:22